=== PATIENT | female | born 1970 | race Caucasian/White ===

== ENCOUNTER 2016-10-03 06:44 | Day surgery (SDC) | payer BC ==
[~2016-10-03 06:44] MED LIST: Buffered Lidocaine 1% SYRIN* 3 ML/SYR SYRINGE INTRADERM ONE; Dexamethasone IV* 4 MG/ML 1 ML (4 MG) IV SLOW PU ONE; Famotidine IV* 10 MG/ML 2 ML (20 mg) IV ONE
[2016-10-03] MEDS ORDERED: Dexamethasone IV* 4 MG/ML 1 ML (4 MG) ONE (06:49)
[2016-10-03] MEDS ORDERED: Famotidine IV* 10 MG/ML 2 ML (20 mg) ONE (06:49)
[2016-10-03 07:11] LABS: UR Preg Internal Control QC Line Present; UR Preg Kit Lot# 6030156
[2016-10-03 07:13] LABS: Manual Entry Verification AS
[2016-10-03] MEDS ORDERED: fentaNYL* 50 MCG/ML 2 ML VIAL (100 MCG VIAL) ONE ×2 (07:47→09:05)
[2016-10-03] MEDS ORDERED: Midazolam* 1 MG/ML 2 ML VIAL (2 MG) ONE (07:47)
[2016-10-03] MEDS ORDERED: Ketorolac INJ* 30 MG/ML 1 ML VIAL ONE (08:21)
[2016-10-03] MEDS ORDERED: Propofol* 10 MG/ML 20 ML BTL IV PUSH ONE (08:21)
[2016-10-03] MEDS ORDERED: Ondansetron INJ* 2 MG/ML VIAL ONE (08:21)
[2016-10-03] MEDS ORDERED: Lidocaine 2% PF* 5 ML VIAL ONE (08:21)
[2016-10-03] MEDS ORDERED: DiMENhydriNATE IV* 50 MG/ML VIAL IV PUSH PRN (08:56)
[2016-10-03] MEDS: fentaNYL* 50 MCG/ML 2 ML VIAL (100 MCG VIAL) IV PRN ×2 (09:05→09:11)
[2016-10-03 09:30] VITALS: BP 147/87
--- NOTE | 2016-10-04 16:11 | OP ---
OPERATIVE REPORT: DATE OF OPERATION: 10/03/16 - [facility] DATE OF : 74 SURGEON: Domingo Mancuso MD NUTRITIONAL HEALTH COACH: None. ANESTHESIOLOGIST: Esequiel Clark MD ANESTHESIA: General anesthetic with endotracheal intubation. PRE-OP DIAGNOSES: Menorrhagia, endometrial polyp, and uterine fibroids. POST-OP DIAGNOSES: Menorrhagia, endometrial polyp, and uterine fibroids, pending pathology. OPERATIVE PROCEDURE: Hysteroscopic polypectomy with MyoSure system and dilation curettage. ESTIMATED BLOOD LOSS: None. SPECIMENS: Sent to pathology were endometrial polyp and endometrial curettings. IV FLUIDS: She received 800 cc of IV crystalloid fluid. URINE OUTPUT: 100 cc of clear urine and the MyoSure fluid system, she received 2 L in with 1772 cc out with a difference of 228 cc. FINDINGS: On exam, the cervix and vaginal mucosa were within normal limits grossly. The uterus sounded to 7 cm in an anteverted position and hysteroscopically, she was noted to have a proliferative endometrium with irregular contour of the endometrial cavity thought most likely due to uterine fibroids. endometrial polyp at the lower uterine segment anteriorly. DESCRIPTION OF PROCEDURE: The patient was taken to the operating room, where she was identified and placed on the operating table where general anesthetic with endotracheal intubation was obtained without difficulty. She was then placed in the dorsal lithotomy position, prepped and draped in the normal sterile fashion. Attention was then brought on to the patient's perineum, where the bladder was catheterized and cleared of urine. At this point, a weighted speculum was inserted into the patient's vagina. The cervix was identified, grasped with a single-tooth tenaculum. The uterus was then sounded to cm and it was noted to be in anteverted position. After sounding the uterus, the cervix was then dilated using Hegar dilators, after which a MyoSure hysteroscope was inserted into the cervix. A survey of the patient's intrauterine cavity revealed findings as noted above. At this point, the endometrial polyp was removed with the MyoSure device and the polyp was sent to Pathology. After this, the MyoSure hysteroscope was removed from the patient's uterus and a sharp curettage was performed and the endometrial curettings were sent to Pathology. After the curettage, a second look with the MyoSure hysteroscope revealed complete denudation of the endometrial cavity. At this point, all the instruments were removed from the patient's vagina. Sponge, lap , and needle counts were correct x2. The patient was then transferred to recovery room area in stable condition. [id number]/[facility] #: [id number] MTDD
== END 2016-10-03 09:52 | disposition home or self-care (01) ==
LOC: OR 06:44
PROVIDERS: ATTEND Obstetrics & Gynecology
DX: N92.0 Excessive and frequent menstruation with regular cycle (principal); N84.1 Polyp of cervix uteri; D25.0 Submucous leiomyoma of uterus; E03.9 Hypothyroidism, unspecified
CPT/HCPCS: 36415; 81025; 86850; 86900; 86901; 88305; J1100; J1885; J2250; J2405; J2704; J3010